=== PATIENT | male | born 1970 | race African-American/Black ===

== ENCOUNTER 2016-05-10 12:16 | Emergency (ER) | payer MEDICARE, MEDICAID ==
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
== END 2016-05-10 13:01 | disposition home or self-care (01) ==
LOC: BURERS 12:16
DX: J11.1 Influenza due to unidentified influenza virus with other respiratory manifestations (principal); F17.210 Nicotine dependence, cigarettes, uncomplicated
CPT/HCPCS: 99283

== ENCOUNTER 2018-08-12 21:30 | Emergency (ER) | payer MEDICARE, OTHER ==
[2018-08-12] MEDS ORDERED: Adacel (T-DAP) 0.5 ML SYRINGE ONE (21:45)
== END 2018-08-12 22:05 | disposition home or self-care (01) ==
LOC: BURERS 21:30
DX: S91.205A Unspecified open wound of left lesser toe(s) with damage to nail, initial encounter (principal); W22.8XXA Striking against or struck by other objects, initial encounter
CPT/HCPCS: 90471; 90715